=== PATIENT | female | born 1955 | race Caucasian/White ===

== ENCOUNTER 2016-12-24 07:21 | Day surgery (SDC) | payer OTHER ==
[~2016-12-24 07:21] MED LIST: Lactated Ringers 1,000 ML IV SCH; Lidocaine 1%/Sod Bicarbonate in NS 8.4% 1 ML Syringe PRN; Sodium Chloride 0.9% 10 ML Syringe FLUSH PRN
--- NOTE | 2016-12-24 07:39 | PCM.PREANE ---
Preanesthetic Assessment - Procedure Proposed Procedure: Colonoscopy - Anesthesia/Transfusion/Family Hx Anesthesia History: Prior Anesthesia Reaction Type of Anesthesia Reaction: Excessive Nausea/Vomiting (with fentanyl ) Family History of Anesthesia Reaction: No Transfusion History: No Prior Transfusion(s) Intubation History: Unknown (not that aware ) - Review of Systems General: No Symptoms Pulmonary: No Symptoms Cardiovascular: No Symptoms Gastrointestinal: No Symptoms Neurological: No Symptoms Other: Reports: None - Physical Assessment NPO Status Date: 12/24/16 NPO Status Time: 21:30 Pulse: 72 O2 Sat by Pulse Oximetry: 99 Respiratory Rate: 16 Blood Pressure: 99/51 Temperature: 97.9 C Height: 64 cm Weight: 75.75 kg ASA Class: 2 Mental Status: Alert & Oriented x3 Airway Class: Mallampati = 2 Dentition: Reports: Normal Dentition Thyro-Mental Finger Breadths: 2 Mouth Opening Finger Breadths: 4 ROM/Head Extension: Full Lungs: Clear to Auscultation, Normal Respiratory Effort Cardiovascular: Regular Rate, Regular Rhythm - Allergies Allergies/Adverse Reactions: Allergies Allergy/AdvReac Type Severity Reaction Status Date / Time No Known Allergies Allergy Verified 12/23/16 14:19 - Blood Blood Available: No Product(s) Available: None - Anesthesia Plan Pre-Op Medication Ordered: None - Acknowledgements Anesthesia Type Planned: MAC Pt an Appropriate Candidate for the Planned Anesthesia: Yes Alternatives and Risks of Anesthesia Discussed w Pt/Guardian: Yes Pt/Guardian Understands and Agrees with Anesthesia Plan: Yes PreAnesthesia Questionnaire HEENT History: Reports: Impaired Vision Cardiovascular History: Reports: None Respiratory History: Reports: None Gastrointestinal History: Reports: Colon Polyp [employer]ING [employer]ATEGIST History: Reports: Musculoskeletal History: Reports: Other (See Below) Other Musculoskeletal History: joint pain Neurological History: Reports: None Psychiatric History: Reports: None Endocrine/Metabolic History: Reports: None Hematologic History: Reports: None Immunologic History: Reports: None Oncologic (Cancer) History: Reports: None Dermatologic History: Reports: None - Past Surgical History Head Surgeries/Procedures: Reports: None HEENT Surgical History: Reports: Adenoidectomy, Tonsillectomy GI Surgical History: Reports: Appendectomy, Colonoscopy Female Surgical History: Reports: Breast Biopsy, Section, Tubal Ligation Neurological Surgical History: Reports: None Oncologic Surgical History: Reports: None Dermatological Surgical History: Reports: None - SUBSTANCE USE Smoking Status *Q: Never Smoker Recreational Drug Use History: No - HOME MEDS Home Medications: Home Meds Ascorbic Acid [Vitamin C] 1,000 mg PO DAILY 12/23/16 [History] Calcium Carbonate/Vitamin D3 [Calcium 600-Vit D3 400 Tablet] 1 tab PO DAILY [History] Cartilage/Collagen/Bor/Hyalur [Joint Health Tablet] 1 tab PO DAILY 12/23/16 [ History] Cholecalciferol (Vitamin D3) [Vitamin D3] 2,000 unit PO DAILY 12/23/16 [History] Multivitamin [Zoo Chews] 1 tab PO DAILY 12/23/16 [History] - CURRENT (IN HOUSE) MEDS Current Meds: Current Medications Lactated Ringer's (Ringers, Lactated) 1,000 mls @ 125 mls/hr IV ASDIRECTED JOSE Stop: 12/24/16 23:00 Lidocaine/Sodium Bicarbonate (Buffered Lidocaine 1% In Ns 8.4%) 0.25 ml .XX ONETIME PRN PRN Reason: Prior to IV Start Stop: 12/24/16 18:00 Sodium Chloride (Saline Flush) 10 ml FLUSH ASDIRECTED PRN PRN Reason: Keep Vein Open Stop: 12/24/16 18:00
[2016-12-24] MEDS ORDERED: Propofol 200 MG/20 ML SDV ONE (08:08)
[2016-12-24] MEDS ORDERED: Lidocaine 1% 4 ML ONE (08:09)
[2016-12-24] MEDS ORDERED: Midazolam 1 MG/ML 2 ML SDV ONE (09:08)
--- NOTE | 2016-12-24 09:16 | PCM.OPNOTE ---
- General Post-Op/Procedure Note Date of Surgery/Procedure: 12/24/16 Operative Procedure(s): colonoscopy Findings: 1. anal tags 2. sigmoid diverticulosis 3. internal hemorrhoids No mass lesions or polyps were seen. Pre Op Diagnosis: history of colon polyps and family history of colon cancer Post-Op Diagnosis: 1. Anal tags. 2. Uncomplicated internal hemorrhoids. 3. Sigmoid diverticulosis uncomplicated Anesthesia Technique: MAC, Moderate Sedation Primary Surgeon: Jarod Samuels Pathology: None EBL in mLs: 0 Complications: None Condition: Good Free Text/Narrative:: After adequate IV sedation and analgesia was obtained with monitoring the patient was placed on her left side. Perianal inspection and digital rectal examination remarkable for anal tags and uncomplicated internal hemorrhoids. A lubricated colonoscope was inserted into the rectum and advanced under direct vision to the cecum without difficulty. The bowel preparation was excellent. The cecum, ascending, transverse, and descending colons were endoscopically normal with no mass lesions or inflammatory changes seen. The sigmoid had a few scattered diverticuli. The rectum was unremarkable in the proximal view but in the retroflexed view I could see the uncomplicated internal hemorrhoids. Photographs were taken for the patient and for the medical record. Air was removed as I finished the procedure which she tolerated well.
--- NOTE | 2016-12-24 09:18 | PCM48HPAN ---
Post Anesthesia Note - EVALUATION WITHIN 48HRS OF ANESTHETIC Vital Signs in Normal Range: Yes Patient Participated in Evaluation: Yes Respiratory Function Stable: Yes Airway Patent: Yes Cardiovascular Function Stable: Yes Hydration Status Stable: Yes Pain Control Satisfactory: Yes Nausea and Vomiting Control Satisfactory: Yes Mental Status Recovered: Yes
[2016-12-24 09:42] VITALS: BP 91/54
== END 2016-12-24 10:05 | disposition home or self-care (01) ==
LOC: JD.SDS 07:21
PROVIDERS: ATTEND Surgery
PROC: 0DJD8ZZ Inspection of Lower Intestinal Tract, Via Natural or Artificial Opening Endoscopic (ICD-10-PCS; principal; 2016-12-24)
DX: K57.30 Diverticulosis of large intestine without perforation or abscess without bleeding (principal); K64.8 Other hemorrhoids; K64.4 Residual hemorrhoidal skin tags; Z86.010 Personal history of colon polyps; Z80.0 Family history of malignant neoplasm of digestive organs; Z79.899 Other long term (current) drug therapy; Z90.49 Acquired absence of other specified parts of digestive tract; Z98.890 Other specified postprocedural states; Z98.51 Tubal ligation status
CPT/HCPCS: 45378; J2250; J7120; 00810; J2704

== ENCOUNTER 2021-11-26 07:04 | Day surgery (SDC) | payer MEDICARE, BC ==
[~2021-11-26 07:04] MED LIST changes: +Lidocaine 1%/Sod Bicarbonate in NS 8.4% 1 ML Syringe IDERM PRN; -Lidocaine 1%/Sod Bicarbonate in NS 8.4% 1 ML Syringe PRN; +Sodium Chloride 0.9% 10 ML Syringe FLUSH SCH
[2021-11-26] MEDS ORDERED: Propofol 200 MG/20 ML SDV ONE (07:30)
[2021-11-26] MEDS ORDERED: Lidocaine 1% 4 ML ONE (07:30)
[2021-11-26] MEDS ORDERED: Midazolam 1 MG/ML 2 ML SDV ONE (07:57)
[2021-11-26 10:38] VITALS: BP 103/59; PULSE 65
== END 2021-11-26 09:02 | disposition home or self-care (01) ==
LOC: JD.SDS 07:04
PROVIDERS: ATTEND Surgery
DX: Z12.11 Encounter for screening for malignant neoplasm of colon (principal); K57.30 Diverticulosis of large intestine without perforation or abscess without bleeding; G20 Parkinson's disease; Z80.0 Family history of malignant neoplasm of digestive organs; U09.9 Post COVID-19 condition, unspecified; Z79.899 Other long term (current) drug therapy; Z90.49 Acquired absence of other specified parts of digestive tract; Z98.890 Other specified postprocedural states
CPT/HCPCS: G0105; J2250; J2704; J7120